=== PATIENT | female | born 1975 | race Caucasian/White ===

== ENCOUNTER 2017-01-03 17:23 | Emergency (ER) | payer SELFPAY ==
[2017-01-03 17:30] VITALS: TEMP 98.1; O2SAT 97
[2017-01-03] MEDS ORDERED: HYDROmorphONE/DILAUDID 1 MG/ML SYR IVP ONE (17:56)
[2017-01-03] MEDS ORDERED: NS 1,000 ML IV ONE (17:56)
[2017-01-03] MEDS ORDERED: ONDANSETRON 4 MG/2 ML VIAL IVP ONE (17:56)
[2017-01-03] MEDS ORDERED: LORazepam 2 MG/ML INJ IVP ONE (17:57)
[2017-01-03] MEDS ORDERED: LORazepam 1 MG TAB PO ONE (17:58)
--- NOTE | 2017-01-03 18:01 | EDPHY ---
H & P Stated Complaint: abdominal pain , fatigue and nausea x x4 days Time Seen by Provider: 01/03/17 17:40 HPI/ROS: CHIEF COMPLAINT: abdominal pain HISTORY OF PRESENT ILLNESS: The patient is a 41-year-old female from [facility] who comes to the emergency department complaining of abdominal pain. She states that for the last 5 years she has been struggling with joint aches, muscle aches, faint rashes that are very itchy, nausea vomiting, bloating, decreased energy and burning in her chest when she drinks cold water. She has had multiple workups in [facility]. She came to the [facility] recently and was told her that she may have celiac disease. She followed up with a gastrologist today Dr. Sheng Calabrese. He recommended blood testing including celiac panel. The patient states that she cannot wait that long and decided to come to the ER instead. She states that on Friday she had an episode of severe right lower quadrant burning that caused her to faint. She states that she laid outside of a restaurant for several hours and no and helped her. She headache was able to stand up and walk home. That pain is now resolved but she is concerned that something may have burst. REVIEW OF SYSTEMS: Constitutional: denies: chills, fever, recent illness, recent injury EENTM: denies: blurred vision, double vision, nose congestion Respiratory: denies: cough, shortness of breath Cardiac: denies: chest pain, irregular heart rate, lightheadedness, palpitations Gastrointestinal/Abdominal: denies: abdominal pain, diarrhea, nausea, vomiting, blood streaked stools Genitourinary: denies: dysuria, frequency, hematuria, pain Musculoskeletal: denies: joint pain, muscle pain Skin: denies: lesions, rash, jaundice, bruising Neurological: denies: headache, numbness, paresthesia, tingling, dizziness, weakness Hematologic/Lymphatic: denies: blood clots, easy bleeding, easy bruising Immunologic/allergic: denies: HIV/AIDS, transplant EXAM: GENERAL: Well-appearing, thin and in no acute distress. HEAD: Atraumatic, normocephalic. EYES: Pupils equal round and reactive to light, extraocular movements intact, sclera anicteric, conjunctiva are normal. ENT: TMs normal, nares patent, oropharynx clear without exudates. Moist mucous membranes. NECK: Normal range of motion, supple without lymphadenopathy or JVD. LUNGS: Breath sounds clear to auscultation bilaterally and equal. No wheezes rales or rhonchi. HEART: Regular rate and rhythm without murmurs, rubs or gallops. ABDOMEN: Soft, nontender, normoactive bowel sounds. No guarding, no rebound. No masses appreciated. BACK: No CVA tenderness, no spinal tenderness, step-offs or deformities EXTREMITIES: Normal range of motion, no pitting or edema. No clubbing or cyanosis. NEUROLOGICAL: Cranial nerves II through XII grossly intact. Normal speech, normal gait. 5/5 strength, normal movement in all extremities, normal sensation PSYCH: Anxious and frustrated SKIN: Warm, dry, normal turgor, no visible rashes or lesions. Source: Patient Exam Limitations: No limitations - Personal History LMP (Females 10-55): 15-21 Days Ago Current Tetanus/Diphtheria Vaccine: No Current Tetanus Diphtheria and Acellular Pertussis (TDAP): No - Medical/Surgical History Hx Asthma: Yes Hx Chronic Respiratory Disease: No Hx Diabetes: No Hx Cardiac Disease: No Hx Renal Disease: No Hx Cirrhosis: No Hx Alcoholism: No Hx HIV/AIDS: No Hx Splenectomy or Spleen Trauma: No Other PMH: states possible cilliac disease - Family History Significant Family History: No pertinent family hx - Social History Smoking Status: Heavy smoker Alcohol Use: Sober Drug Use: None Constitutional: Initial Vital Signs Temperature (C) 36.7 C 01/03/17 17:25 Heart Rate 66 01/03/17 17:25 Respiratory Rate 18 01/03/17 17:25 Blood Pressure 124/78 H 01/03/17 17:25 O2 Sat (%) 97 01/03/17 17:25 O2 Delivery Mode Room Air Allergies/Adverse Reactions: No Known Allergies Allergy (Unverified 01/03/17 17:30) Home Medications: Medication Instructions Recorded NK [No Known Home Meds] 01/03/17 Medical Decision Making - Diagnostics Imaging Results: Imaging Impressions Abdomen CT 01/03/17 17:56 Impression: 1. Normal appendix. 2. Right-sided constipation and features equivocal for gastroenteritis. 3. Small left ovarian cyst. Findings discussed with Emergency Department physician, Calos Velásquez, at 1925 hours 03/01/2017. Imaging: Discussed imaging studies w/ call or contact centre operator Radiologist ED Course/Re-evaluation: 7:40 p.m. we discussed the imaging and lab results the patient understands. I did not have a specific cause for her symptoms. I suspect she may have ruptured ovarian cyst the when she had her sudden right lower quadrant ago. She will follow up with Dr. Calabrese for upper and lower endoscopy as previously planned. Differential Diagnosis: Partial list of the Differential diagnosis considered include but were not limited to; gastroenteritis, celiac disease, ovarian cyst, endometriosis, and although unlikely based on the history and physical exam, I also considered urinary tract infection, appendicitis, perforation, ischemic. I discussed these differential diagnoses and the plan with the patient as well as the usual and expected course. The patient understands that the diagnosis is provisional and that in medicine we are not always correct and that further workup is often warranted. Usual and customary warnings were given. All of the patient's questions were answered. The patient was instructed to return to the emergency department should the symptoms at all worsen or return, otherwise to followup with the physician as we discussed. - Data Points Laboratory Results: Laboratory Results 01/03/17 18:30 01/03/17 18:30 01/03/17 01/03/17 01/03/17 18:30 18:30 18:30 WBC RBC Hgb Hct MCV MCH MCHC RDW Plt Count MPV Neut % (Auto) Lymph % (Auto) [place] % (Auto) Eos % (Auto) Baso % (Auto) Nucleat RBC Rel Count Absolute Neuts (auto) Absolute Lymphs (auto) Absolute Monos (auto) Absolute Eos (auto) Absolute Basos (auto) Absolute Nucleated RBC Immature Gran % Immature Gran # Sodium 138 mEq/L mEq/L (134-144) Potassium 3.9 mEq/L mEq/L (3.5-5.2) Chloride 103 mEq/L mEq/L (97-110) Carbon Dioxide 23 mEq/l mEq/l (22-31) Anion Gap 12 mEq/L mEq/L (8-16) BUN 7 mg/dL mg/dL (7-23) Creatinine 0.7 mg/dL mg/dL (0.6-1.0) Estimated GFR > 60 Glucose 87 mg/dL mg/dL (70-100) Calcium 9.4 mg/dL mg/dL (8.5-10.4) Total Bilirubin 0.5 mg/dL mg/dL (0.1-1.4) Conjugated Bilirubin 0.2 mg/dL mg/dL (0.0-0.5) Unconjugated Bilirubin 0.3 mg/dL mg/dL (0.0-1.1) AST 24 IU/L IU/L (14-46) ALT 32 IU/L IU/L (9-52) Alkaline Phosphatase 56 IU/L IU/L (38-126) C-Reactive Protein < 5.0 mg/L mg/L (<10.0) Total Protein 7.0 g/dL g/dL (6.3-8.2) Albumin 4.3 g/dL g/dL (3.5-5.0) Lipase 146 IU/L IU/L (23-300) TSH 2.990 uIU/mL uIU/mL (0.465-4.680) Beta HCG, Qual NEGATIVE Urine Color Urine Appearance Urine pH Ur Specific [place] Urine Protein Urine Ketones Urine Blood Urine Nitrate Urine Bilirubin Urine Urobilinogen Ur Leukocyte Esterase Urine RBC Urine WBC Ur Epithelial Cells Urine Bacteria Urine Mucus Urine Glucose IgA Pending Celiac Disease Interp Pending 01/03/17 01/03/17 18:30 17:47 WBC 6.55 10^3/uL 10^3/uL (3.80-9.50) RBC 4.48 10^6/uL 10^6/uL (4.18-5.33) Hgb 11.9 g/dL L g/dL (12.6-16.3) Hct 36.1 % L % (38.0-47.0) MCV 80.6 fL L fL (81.5-99.8) MCH 26.6 pg L pg (27.9-34.1) MCHC 33.0 g/dL g/dL (32.4-36.7) RDW 16.9 % H % (11.5-15.2) Plt Count 277 10^3/uL 10^3/uL (150-400) MPV 10.7 fL fL (8.7-11.7) Neut % (Auto) 58.2 % % (39.3-74.2) Lymph % (Auto) 29.2 % % (15.0-45.0) [place] % (Auto) 9.2 % % (4.5-13.0) Eos % (Auto) 2.6 % % (0.6-7.6) Baso % (Auto) 0.6 % % (0.3-1.7) Nucleat RBC Rel Count 0.0 % % (0.0-0.2) Absolute Neuts (auto) 3.82 10^3/uL 10^3/uL (1.70-6.50) Absolute Lymphs (auto) 1.91 10^3/uL 10^3/uL (1.00-3.00) Absolute Monos (auto) 0.60 10^3/uL 10^3/uL (0.30-0.80) Absolute Eos (auto) 0.17 10^3/uL 10^3/uL (0.03-0.40) Absolute Basos (auto) 0.04 10^3/uL 10^3/uL (0.02-0.10) Absolute Nucleated RBC 0.00 10^3/uL 10^3/uL (0-0.01) Immature Gran % 0.2 % % (0.0-1.1) Immature Gran # 0.01 10^3/uL 10^3/uL (0.00-0.10) Sodium Potassium Chloride Carbon Dioxide Anion Gap BUN Creatinine Estimated GFR Glucose Calcium Total Bilirubin Conjugated Bilirubin Unconjugated Bilirubin AST ALT Alkaline Phosphatase C-Reactive Protein Total Protein Albumin Lipase TSH Beta HCG, Qual Urine Color PALE YELLOW Urine Appearance CLEAR Urine pH 6.0 (5.0-7.5) Ur Specific [place] 1.006 (1.002-1.030) Urine Protein NEGATIVE (NEGATIVE) Urine Ketones NEGATIVE (NEGATIVE) Urine Blood NEGATIVE (NEGATIVE) Urine Nitrate NEGATIVE (NEGATIVE) Urine Bilirubin NEGATIVE (NEGATIVE) Urine Urobilinogen NEGATIVE EU EU (0.2-1.0) Ur Leukocyte Esterase NEGATIVE (NEGATIVE) Urine RBC NONE SEEN /hpf /hpf (0-3) Urine WBC NONE SEEN /hpf /hpf (0-3) Ur Epithelial Cells TRACE /lpf /lpf (NONE-1+) Urine Bacteria TRACE /hpf H /hpf (NONE SEEN) Urine Mucus TRACE /lpf /lpf (NONE-1+) Urine Glucose NEGATIVE (NEGATIVE) IgA Celiac Disease Interp Medications Given: Discontinued Medications Hydromorphone HCl (Dilaudid) 0.5 mg IVP EDNOW ONE Stop: 01/03/17 17:57 Last Admin: 01/03/17 18:46 Dose: Not Given Sodium Chloride (Ns) 1,000 mls @ 0 mls/hr IV EDNOW ONE; Wide Open PRN Reason: Protocol Stop: 01/03/17 17:57 Last Admin: 01/03/17 18:46 Dose: Not Given Lorazepam (Ativan) 2 mg PO EDNOW ONE Stop: 01/03/17 17:59 Last Admin: 01/03/17 18:02 Dose: 2 mg Ondansetron HCl (Zofran) 4 mg IVP EDNOW ONE Stop: 01/03/17 17:57 Last Admin: 01/03/17 18:46 Dose: Not Given Departure - Departure Disposition: Home, Routine, Self-Care Clinical Impression: Abdominal pain Qualifiers: Abdominal location: generalized Qualified Code(s): R10.84 - Generalized abdominal pain Condition: Fair Instructions: Abdominal Pain (ED) Referrals: NONE *PRIMARY CARE P,. [Primary Care Provider] - As per Instructions Sheng Calabrese MD [Medical Doctor] - As per Instructions
[2017-01-03 18:04] LABS: COLOR PALE YELLOW; LEUKOCYTE ESTERASE,URINE NEGATIVE (NEGATIVE); NITRITE,URINE NEGATIVE (NEGATIVE)
[2017-01-03 18:08] LABS: BACTERIA TRACE /hpf (NONE SEEN); MUCUS TRACE /lpf (NONE-1+)
[2017-01-03 18:09] LABS: RBC,URINE NONE SEEN /hpf (0-3); WBC,URINE NONE SEEN /hpf (0-3)
[2017-01-03 18:36] LABS: % IMMATURE GRANULYOCYTES 0.2 % (0.0-1.1); ABSOLUTE IMMATURE GRANULOCYTES 0.01 10^3/uL (0.00-0.10); ADD DIFF? NO; ADD MORPH? NO; ADD SCAN? NO; ATYPICAL LYMPHOCYTE FLAG 20 (0-99); FRAGMENT RBC FLAG 0 (0-99); HEMATOCRIT 36.1 % (38.0-47.0); HEMOGLOBIN 11.9 g/dL (12.6-16.3); LEFT SHIFT FLG 0 (0-99); LIPEMIA HEMOLYSIS FLAG 80 (0-99); MEAN CELL HEMOGLOBIN 26.6 pg (27.9-34.1); MEAN CELL VOLUME 80.6 fL (81.5-99.8); MEAN PLATELET VOLUME 10.7 fL (8.7-11.7); PLATELET CLUMPS FLAG 10 (0-99); PLATELET COUNT 277 10^3/uL (150-400); RED BLOOD CELL COUNT 4.48 10^6/uL (4.18-5.33); RED CELL DISTRIBUTION WIDTH 16.9 % (11.5-15.2)
[2017-01-03 18:54] LABS: ALANINE AMINOTRANSFERASE 32 IU/L (9-52); ALBUMIN 4.3 g/dL (3.5-5.0); ALKALINE PHOSPHATASE 56 IU/L (38-126); ANION GAP 12 mEq/L (8-16); ASPARTATE AMINOTRANSFERASE 24 IU/L (14-46); BILIRUBIN,TOTAL 0.5 mg/dL (0.1-1.4); BILIRUBIN-CONJUGATED 0.2 mg/dL (0.0-0.5); BILIRUBIN-UNCONJUGATED 0.3 mg/dL (0.0-1.1); C-REACTIVE PROTEIN < 5.0 mg/L (<10.0); CALCIUM 9.4 mg/dL (8.5-10.4); CARBON DIOXIDE 23 mEq/l (22-31); CHLORIDE 103 mEq/L (97-110); CREATININE 0.7 mg/dL (0.6-1.0); GLOMERULAR FILTRATION RATE > 60; GLUCOSE 87 mg/dL (70-100); POTASSIUM 3.9 mEq/L (3.5-5.2); SODIUM 138 mEq/L (134-144)
[2017-01-03] MEDS ORDERED: IOPAMIDOL (ISOVUE-300) 100 ML BTL ONE (18:56)
[2017-01-03 20:27] VITALS: BP 119/75; PULSE 72; RESP 16
[2017-01-06 20:29] LABS: CELIAC DISEASE INTERPRETATION See Comments; IMMUNOGLOBULIN A CELIAC 89 mg/dL (61 - 356)
== END 2017-01-03 20:30 | disposition home or self-care (01) ==
DX: R10.84 Generalized abdominal pain (principal); J45.909 Unspecified asthma, uncomplicated; F17.200 Nicotine dependence, unspecified, uncomplicated
CPT/HCPCS: 82784-90; 83516-90; Q9967